=== PATIENT | male | born 1965 | race Two or more races ===

== ENCOUNTER 2021-10-24 19:27 | Emergency (ER) | payer MEDICAID, OTHER ==
[~2021-10-24] VITALS: Ht 170.2 cm; Wt 81.6 kg
[2021-10-24 19:27] VITALS: BP 131/75
== END 2021-10-24 23:48 | disposition left against medical advice (07) ==
LOC: ER 19:27
DX: R51.9 Headache, unspecified (principal); H92.02 Otalgia, left ear; Z53.21 Procedure and treatment not carried out due to patient leaving prior to being seen by health care provider